=== PATIENT | female | born 1955 | race Caucasian/White ===

== ENCOUNTER 2016-10-24 17:08 | Emergency (ER) | payer BC ==
[2016-10-24] MEDS ORDERED: Albuterol 2.5 MG/3 ML NEB.SOL* (0.083%) INH ONE (18:47)
--- NOTE | 2016-10-24 18:51 | UC ---
Respiratory Complaint HPI - HPI Summary HPI Summary: patient has had a cold, but the past few days has developed increased wheezing and SOB, denies fever or sinus symptoms, denies sore throat. - History of Current Complaint Stated Complaint: COUGH Time Seen by Provider: 10/24/16 18:44 Hx Obtained From: Patient ?: No Onset/Duration: Sudden Onset, Lasting Days Timing: Constant Severity Initially: Mild Severity Currently: Moderate Pain Intensity: 5 Pain Scale Used: 0-10 Numeric Character: Cough: Nonproductive Aggravating Factors: Exertion, Deep Breaths, Recumbent Position Alleviating Factors: Nothing Associated Signs And Symptoms: Positive: Dyspnea, Wheezing - Risk Factors Pulmonary Embolism Risk Factors: Negative Cardiac Risk Factors: Negative Pseudomonas Risk Factors: Negative Tuberculosis Risk Factors: Negative - Allergies/Home Medications Allergies/Adverse Reactions: Allergies Allergy/AdvReac Type Severity Reaction Status Date / Time Penicillins [PCN] Allergy Unknown Verified 10/24/16 18:58 Reaction Details Home Medications: Home Medications Levothyroxine TAB* [Synthroid TAB*] 125 mcg PO DAILY 10/24/16 [History Confirmed 10/24/16] PMH/Surg Hx/FS Hx/Imm Hx Previously Healthy: Yes - Family History Known Family History: Positive: Respiratory Disease Review of Systems Constitutional: Negative Skin: Negative Eyes: Negative ENT: Negative Respiratory: Shortness Of Breath, Cough Cardiovascular: Negative Gastrointestinal: Negative Genitourinary: Negative Motor: Negative Neurovascular: Negative Musculoskeletal: Negative Neurological: Negative Psychological: Negative All Other Systems Reviewed And Are Negative: Yes Physical Exam Triage Information Reviewed: Yes Appearance: Well-Nourished, Ill-Appearing, Pain Distress Vital Signs Reviewed: Yes Eye Exam: Normal Eyes: Positive: Conjunctiva Clear ENT Exam: Normal ENT: Positive: Normal ENT inspection, Hearing grossly normal, Pharynx normal, TMs normal Dental Exam: Normal Neck exam: Normal Neck: Positive: Supple, Nontender, No Lymphadenopathy Respiratory: Positive: Chest non-tender, Respiratory distress - mild, Rhonchi, Wheezing, Inspiration Cardiovascular Exam: Normal Cardiovascular: Positive: RRR, No Murmur, Pulses Normal Abdominal Exam: Normal Abdomen Description: Positive: Nontender, No Organomegaly, Soft Bowel Sounds: Positive: Present Musculoskeletal Exam: Normal Musculoskeletal: Positive: Strength Intact, ROM Intact, No Edema Neurological Exam: Normal Neurological: Positive: Alert, Muscle Tone Normal Psychological Exam: Normal Skin Exam: Normal Respiratory Course/Dx - Course Course Of Treatment: hx obtained, patient has hx of asthma with exertion exam performed, medication reviewed, albuterol neb administered for wheezing, with good effect. Tesselon pearls given for cough. albuterol inh. dispensed and other meds prescribed. educated on how to use an MDI. - Differential Dx/Diagnosis Differential Diagnosis/HQI/PQRI: Aspiration, Asthma, Bronchitis, Influenza, Laryngitis, SARS, Sinusitis Provider Diagnoses: wheezing. cough Discharge - Discharge Plan Condition: Stable Disposition: HOME Prescriptions: predniSONE TAB* [Deltasone TAB*] 40 mg PO DAILY #10 tab Patient Education Materials: Bronchospasm (ED) Additional Instructions: take the medications as prescribed. Cool mist humidification at night. Honey and hot tea, with jaskaran and cinnamon. follow p if you develop any respiratory distress.
[2016-10-24 19:01] VITALS: BP 148/84
[2016-10-24] MEDS ORDERED: Benzonatate CAP* 100 MG PO ONE (19:26)
[2016-10-24] MEDS ORDERED: Albuterol HFA INHALER* 8 gm MDI INH ONE (19:26)
== END 2016-10-24 19:51 | disposition home or self-care (01) ==
LOC: UCCORT 17:08
DX: R06.2 Wheezing (principal); R05 Cough; Z88.0 Allergy status to penicillin
CPT/HCPCS: 99203; A9270-GY; G0463

== ENCOUNTER 2016-10-29 07:13 | Emergency (ER) | payer BC ==
[2016-10-29] MEDS ORDERED: Ipratropium 0.5MG/2.5ML NEB* 0.5 MG/2.5 ML NEB.SOLN INH ONE (07:35)
[2016-10-29] MEDS ORDERED: Albuterol 2.5 MG/3 ML NEB.SOL* (0.083%) INH ONE (07:35)
--- NOTE | 2016-10-29 07:35 | UC ---
Respiratory Complaint HPI - HPI Summary HPI Summary: 61 yo female with cough and wheezing x 3 weeks febrile at times relief with inhaler cough now productive couldn't tolerate prednisone no n/v/d - History of Current Complaint Chief Complaint: UCRespiratory Stated Complaint: COUGH Time Seen by Provider: 10/29/16 07:25 Hx Obtained From: Patient Hx Last Menstrual Period: n/a Onset/Duration: Gradual Onset, Lasting Weeks Severity Initially: Mild Severity Currently: Moderate Pain Intensity: 4 Pain Scale Used: 0-10 Numeric Character: Cough: Productive Aggravating Factors: Exertion, Deep Breaths Alleviating Factors: Bronchodilator Associated Signs And Symptoms: Positive: Fever, Wheezing - Allergies/Home Medications Allergies/Adverse Reactions: Allergies Allergy/AdvReac Type Severity Reaction Status Date / Time Codeine Allergy Dizziness Verified 10/29/16 07:24 Penicillins [PCN] Allergy Unknown Verified 10/24/16 18:58 Reaction Details Prednisone Allergy Dizziness Verified 10/29/16 07:24 Home Medications: Home Medications Otc Cough Med 1 dose PO Q4HR PRN 10/29/16 [History] PMH/Surg Hx/FS Hx/Imm Hx Endocrine History Of: Reports: Thyroid Disease Respiratory History Of: Reports: Asthma - exercise induced - Surgical History Surgical History: Yes Surgery Procedure, Year, and Place: tubal ligation, carpal tunnel surgery, acid reflux surgery, tonsillectomy - Family History Known Family History: Positive: Respiratory Disease - Social History Alcohol Use: Occasionally Substance Use Type: None Smoking Status (MU): Never Smoked Tobacco Review of Systems Constitutional: Fever - at times, Fatigue Skin: Negative Eyes: Negative ENT: Negative Respiratory: Cough Cardiovascular: Negative Gastrointestinal: Negative Genitourinary: Negative Motor: Negative Neurovascular: Negative Musculoskeletal: Negative Neurological: Negative Psychological: Negative All Other Systems Reviewed And Are Negative: Yes Physical Exam Triage Information Reviewed: Yes Appearance: Well-Appearing, No Pain Distress, Well-Nourished Vital Signs: Initial Vital Signs Temp 98.5 F 10/29/16 07:15 Pulse 86 10/29/16 07:15 Resp 22 10/29/16 07:15 BP 162/82 10/29/16 07:15 Pulse Ox 97 10/29/16 07:15 Vital Signs Reviewed: Yes Eyes: Positive: Conjunctiva Clear ENT: Positive: Hearing grossly normal, TMs normal. Negative: Pharyngeal erythema, Nasal congestion, Nasal drainage, Tonsillar swelling, Tonsillar exudate, Trismus, Muffled/hoarse voice Dental: Negative: Gross Decay/Caries @, Dental Fracture @, Abscess @ Neck exam: Normal Neck: Positive: Supple, Nontender, No Lymphadenopathy Respiratory: Positive: No respiratory distress, No accessory muscle use, Crackles - left base, Wheezing Cardiovascular: Positive: RRR, No Murmur. Negative: Tachycardia, Bradycardia Musculoskeletal: Positive: ROM Intact, No Edema Neurological: Positive: Alert Psychological Exam: Normal Skin Exam: Normal UC Diagnostic Evaluation - Laboratory O2 Sat by Pulse Oximetry: 97 - normal/not hypoxic - Radiology Xray Interpretation: No Acute Changes Radiology Interpretation Completed By: Radiologist Re-Evaluation - Re-Evaluation First Eval Re-Evaluation Time: 08:10 Change: Improved Comment: lungs CTA Respiratory Course/Dx - Differential Dx/Diagnosis Provider Diagnoses: acute bronchitis with bronchospasm Discharge - Discharge Plan Condition: Stable Disposition: HOME Prescriptions: Azithromycin TAB* [Zithromax TAB*] 250 mg PO DAILY #6 tab Benzonatate CAP* [Tessalon CAP*] 100 - 200 mg PO TID PRN #28 cap PRN Reason: Cough Patient Education Materials: Acute Bronchitis (ED) Referrals: Sarika Floyd MD [Primary Care Provider] - 4 Days Additional Instructions: continue to use inhaler as directed rest fluids mucinex or robitussin
[2016-10-29 07:36] VITALS: BP 162/82
--- NOTE | 2016-10-29 08:05 | RAD ---
HISTORY: Cough and wheezing COMPARISONS: None VIEWS: 2: Frontal dual-energy and lateral views of the chest. FINDINGS: CARDIOMEDIASTINAL SILHOUETTE: The cardiomediastinal silhouette is normal. LAYLA: The layla are normal. PLEURA: The costophrenic angles are sharp. No pleural abnormalities are noted. LUNG PARENCHYMA: The lungs are clear. ABDOMEN: The upper abdomen is clear. There is no subphrenic gas. BONES AND SOFT TISSUES: No bone or soft tissue abnormalities are noted. OTHER: Surgical clips are noted at the GE junction IMPRESSION: NO ACTIVE CARDIOPULMONARY DISEASE.
== END 2016-10-29 08:22 | disposition home or self-care (01) ==
LOC: UCCORT 07:13
DX: J20.9 Acute bronchitis, unspecified (principal); Z88.5 Allergy status to narcotic agent; Z88.0 Allergy status to penicillin; Z88.8 Allergy status to other drugs, medicaments and biological substances
CPT/HCPCS: 71020; 99212; G0463; J7644